=== PATIENT | male | born 1975 | race Caucasian/White ===

== ENCOUNTER 2017-01-09 09:49 | Emergency (ER) | payer OTHER ==
[~2017-01-09 09:49] MED LIST: ALBUTEROL0.09 MG/A2 INH; BENADRYL25 MG PO; BENADRYL50 MG PO; CATAFLAM50 MG PO; CIPROFLOXACIN500 MG PO; CLEOCIN150 MG PO; DAYPRO600 M1 PO; FLEXERIL5 MG PO; HYDROCODONE BIT1 T11 PO; KEFLEX500 MG PO; LIDEX0.05% T; MOTRIN800 MG PO; NKHM; NORCO 325 MG-51 TAB PO; PEPCID20 MG PO; PREDNICOT10 MG PO; PREDNICOT20 MG PO; PREDNISONE10 MG PO; ULTRAM50 MG PO; VIBRAMYCIN100 MG PO; VICODIN 5/500 505 MG PO; VICODIN ES 7501 TAB PO
[2017-01-09] MEDS ORDERED: HYDROCODONE BIT1 T11 PO (11:16)
== END 2017-01-09 10:57 | disposition home or self-care (01) ==
LOC: ED 09:49
DX: S93.401A Sprain of unspecified ligament of right ankle, initial encounter (principal); S90.01XA Contusion of right ankle, initial encounter; R60.9 Edema, unspecified; F17.200 Nicotine dependence, unspecified, uncomplicated; W17.2XXA Fall into hole, initial encounter; Y93.89 Activity, other specified; Y92.89 Other specified places as the place of occurrence of the external cause; Y99.9 Unspecified external cause status

== ENCOUNTER 2019-08-10 19:29 | Emergency (ER) | payer OTHER ==
[~2019-08-10] VITALS: Wt 72.6 kg
== END 2019-08-10 20:23 | disposition left against medical advice (07) ==
LOC: ED 19:29
DX: S01.01XA Laceration without foreign body of scalp, initial encounter (principal); F10.920 Alcohol use, unspecified with intoxication, uncomplicated; R45.6 Violent behavior; F17.200 Nicotine dependence, unspecified, uncomplicated; X58.XXXA Exposure to other specified factors, initial encounter; Y93.89 Activity, other specified; Y92.89 Other specified places as the place of occurrence of the external cause; Y99.8 Other external cause status

== ENCOUNTER 2019-08-15 12:18 | Emergency (ER) | payer OTHER ==
[~2019-08-15] VITALS: Ht 172.7 cm; Wt 81.6 kg
== END 2019-08-15 13:01 | disposition home or self-care (01) ==
LOC: ED 12:18
DX: S01.01XD Laceration without foreign body of scalp, subsequent encounter (principal); R51 Headache; F17.200 Nicotine dependence, unspecified, uncomplicated; Z79.899 Other long term (current) drug therapy; W01.198D Fall on same level from slipping, tripping and stumbling with subsequent striking against other object, subsequent encounter

== ENCOUNTER 2019-08-31 16:10 | Emergency (ER) | payer SELFPAY ==
[~2019-08-31] VITALS: Ht 167.6 cm; Wt 81.6 kg
== END 2019-08-31 17:48 | disposition home or self-care (01) ==
LOC: ED 16:10
DX: S01.01XD Laceration without foreign body of scalp, subsequent encounter (principal); Z79.899 Other long term (current) drug therapy; W01.198D Fall on same level from slipping, tripping and stumbling with subsequent striking against other object, subsequent encounter

== ENCOUNTER 2020-04-18 00:21 | Emergency (ER) | payer SELFPAY ==
[~2020-04-18] VITALS: Ht 175.2 cm; Wt 81.6 kg
[2020-04-18 00:48] LABS: BASO # 0.1 10*3/uL (0.0-0.1); EOS # 0.3 10*3/uL (0.0-0.4); EOS % 3.2 % (1.0-4.0); HEMATOCRIT 47.6 % (42.0-52.0); LYMPH # 4.2 10*3/uL (1.3-4.4); LYMPH % 41.5 % (27.0-41.0); MEAN CELL VOLUME 91.9 fl (80.0-94.0); MEAN CORPUSCULAR HGB 32.2 pg (27.0-31.0); MEAN CORPUSCULAR HGB CONC 35.1 g/dl (33.0-37.0); MEAN PLATELET VOLUME 9.8 fl (9.6-12.3); MONO # 0.5 10*3/uL (0.1-1.0); MONO % 4.6 % (3.0-9.0); NEUT % 49.5 % (47.0-73.0); PLATELET COUNT AUTOMATED 262 10*3/uL (130-400); RED BLOOD COUNT 5.18 10*6/uL (4.50-5.90); RED CELL DISTRI WIDTH 12.5 % (0-14.5); WHITE BLOOD COUNT 10.1 10*3/uL (4.8-10.8)
[2020-04-18 00:59] LABS: ACT PARTIAL THROMBO TIME 28.2 SECONDS (20.0-32.1); INTERNATIONAL NORM RATIO 0.9 (2.0-3.5)
[2020-04-18 01:05] LABS: ALBUMIN 3.7 gm/dl (3.1-4.5); ALKALINE PHOSPHATASE 80 U/L (45-117); BUN 11 mg/dl (7-24); CHLORIDE 100 mmol/L (98-107); CREATININE 1.01 mg/dL (0.70-1.30); POTASSIUM 3.1 mmol/L (3.5-5.1); SGOT/AST 19 IU/L (3-35); SGPT/ALT 24 U/L (12-78); SODIUM 133 mmol/L (136-145); TOTAL PROTEIN 7.1 gm/dL (6.4-8.2)
[2020-04-18 01:06] LABS: TROPONIN I < 0.015 ng/ml (<0.045)
[2020-04-18] MEDS ORDERED: PROVENTIL HFA6.7 GM INH (01:25)
[2020-04-18] MEDS ORDERED: IBU600 M1 PO (01:25)
== END 2020-04-18 01:56 | disposition home or self-care (01) ==
LOC: ED 00:21
PROVIDERS: Emergency Medicine
DX: J44.9 Chronic obstructive pulmonary disease, unspecified (principal); R07.89 Other chest pain; R05 Cough; F17.210 Nicotine dependence, cigarettes, uncomplicated; Z79.899 Other long term (current) drug therapy

== ENCOUNTER 2020-05-04 02:37 | Emergency (ER) | payer SELFPAY ==
[~2020-05-04] VITALS: Ht 175.2 cm; Wt 81.6 kg
[~2020-05-04 02:37] MED LIST changes: +IBU600 M1 PO; +PROVENTIL HFA6.7 GM INH
== END 2020-05-04 05:46 | disposition left against medical advice (07) ==
LOC: ED 02:37
DX: S02.2XXA Fracture of nasal bones, initial encounter for closed fracture (principal); S01.01XA Laceration without foreign body of scalp, initial encounter; F17.200 Nicotine dependence, unspecified, uncomplicated; J44.9 Chronic obstructive pulmonary disease, unspecified; Z79.899 Other long term (current) drug therapy; Y08.89XA Assault by other specified means, initial encounter; Y93.89 Activity, other specified; Y92.89 Other specified places as the place of occurrence of the external cause; Y99.8 Other external cause status

== ENCOUNTER 2021-04-16 17:40 | Emergency (ER) | payer SELFPAY ==
[~2021-04-16] VITALS: Wt 81.6 kg
[2021-04-16] MEDS ORDERED: PREDNISONE10 MG PO (18:04)
== END 2021-04-16 18:14 | disposition home or self-care (01) ==
LOC: ED 17:40
DX: L23.9 Allergic contact dermatitis, unspecified cause (principal); Z79.899 Other long term (current) drug therapy

== ENCOUNTER 2021-05-10 11:21 | Emergency (ER) | payer SELFPAY ==
[~2021-05-10] VITALS: Wt 81.6 kg
[2021-05-10] MEDS ORDERED: PREDNISONE10 MG PO (11:45)
== END 2021-05-10 12:04 | disposition home or self-care (01) ==
LOC: ED 11:21
DX: L23.7 Allergic contact dermatitis due to plants, except food (principal)

== ENCOUNTER 2021-10-08 21:12 | Emergency (ER) | payer SELFPAY ==
[~2021-10-08] VITALS: Ht 170.1 cm; Wt 81.6 kg
[2021-10-08 22:29] LABS: BASO # 0.1 10*3/uL (0.0-0.1); BASO % 0.9 % (0.0-1.0); EOS # 0.2 10*3/uL (0.0-0.4); EOS % 1.6 % (1.0-4.0); LYMPH # 2.4 10*3/uL (1.3-4.4); LYMPH % 26.5 % (27.0-41.0); MEAN CORPUSCULAR HGB 31.6 pg (27.0-31.0); MEAN CORPUSCULAR HGB CONC 34.3 g/dl (33.0-37.0); MEAN PLATELET VOLUME 9.4 fl (9.6-12.3); MONO # 0.7 10*3/uL (0.1-1.0); MONO % 7.5 % (3.0-9.0); NEUT # 5.8 10*3/uL (2.3-7.9); NEUT % 63.4 % (47.0-73.0); PLATELET COUNT AUTOMATED 286 10*3/uL (130-400); RED BLOOD COUNT 5.76 10*6/uL (4.50-5.90); RED CELL DISTRI WIDTH 12.7 % (0-14.5); WHITE BLOOD COUNT 9.1 10*3/uL (4.8-10.8)
[2021-10-08 22:47] LABS: ALBUMIN 3.6 gm/dl (3.1-4.5); ALKALINE PHOSPHATASE 94 U/L (45-117); BUN 17 mg/dl (7-24); CHLORIDE 106 mmol/L (98-107); CREATININE 0.95 mg/dL (0.70-1.30); LIPASE 116 U/L (73-393); SGOT/AST 19 IU/L (3-35); SGPT/ALT 39 U/L (12-78); SODIUM 137 mmol/L (136-145); TOTAL PROTEIN 7.6 gm/dL (6.4-8.2)
[2021-10-09 00:37] LABS: BILIRUBIN Negative (Negative); BLOOD Negative (Negative); CLARITY Clear (Clear); COLOR Yellow (Yellow); GLUCOSE Negative (Negative); KETONE Trace (Negative); LEUKO ESTERASE Negative (Negative); NITRITE Negative (Negative); SPECIFIC GRAVITY >= 1.030 (1.001-1.030); UROBILINOGEN 0.2 E.U./dl (0.0-1.0)
[2021-10-09 01:02] LABS: RBC 0-2 rbc/hpf (0-2); WBC 0-2 wbc/hpf (0-5)
[2021-10-09] MEDS ORDERED: MIRALAX POWDER17 G1 PO (11:16)
== END 2021-10-09 00:53 | disposition home or self-care (01) ==
LOC: ED 21:12
PROVIDERS: Physician Assistant
DX: K59.00 Constipation, unspecified (principal); R10.33 Periumbilical pain; F17.200 Nicotine dependence, unspecified, uncomplicated

== ENCOUNTER 2021-10-09 08:35 | Emergency (ER) | payer SELFPAY ==
[~2021-10-09] VITALS: Wt 81.6 kg
[2021-10-09 09:32] LABS: BASO # 0.1 10*3/uL (0.0-0.1); BASO % 0.7 % (0.0-1.0); EOS # 0.1 10*3/uL (0.0-0.4); EOS % 0.9 % (1.0-4.0); HEMATOCRIT 53.2 % (42.0-52.0); LYMPH % 20.2 % (27.0-41.0); MEAN CELL VOLUME 91.7 fl (80.0-94.0); MEAN CORPUSCULAR HGB 31.9 pg (27.0-31.0); MEAN CORPUSCULAR HGB CONC 34.8 g/dl (33.0-37.0); MEAN PLATELET VOLUME 9.4 fl (9.6-12.3); MONO # 0.7 10*3/uL (0.1-1.0); MONO % 7.3 % (3.0-9.0); NEUT # 6.8 10*3/uL (2.3-7.9); NEUT % 70.7 % (47.0-73.0); PLATELET COUNT AUTOMATED 286 10*3/uL (130-400); RED CELL DISTRI WIDTH 12.8 % (0-14.5); WHITE BLOOD COUNT 9.6 10*3/uL (4.8-10.8)
[2021-10-09 09:49] LABS: ALBUMIN 3.9 gm/dl (3.1-4.5); ALKALINE PHOSPHATASE 105 U/L (45-117); BUN 19 mg/dl (7-24); CHLORIDE 104 mmol/L (98-107); CREATININE 1.01 mg/dL (0.70-1.30); LIPASE 129 U/L (73-393); POTASSIUM 4.5 mmol/L (3.5-5.1); SGOT/AST 21 IU/L (3-35); SGPT/ALT 37 U/L (12-78); SODIUM 137 mmol/L (136-145); TOTAL PROTEIN 8.1 gm/dL (6.4-8.2)
[2021-10-09 09:55] LABS: URINE AMPHETAMINES > 1000 (1000ng/ml); URINE BARBITURATES < 200 (200ng/ml); URINE BENZODIAZEPINES < 200 (200ng/ml); URINE CANNABINOIDS (THC) > 50 (50ng/ml); URINE COCAINE < 300 (300ng/ml); URINE METHADONE < 300 (300ng/ml); URINE OPIATES < 300 (300ng/ml)
[2021-10-09 09:56] LABS: URINE PHENCYCLIDINE < 25 (25ng/ml)
[2021-10-09] MEDS ORDERED: MIRALAX POWDER17 G1 PO (11:16)
== END 2021-10-09 11:22 | disposition home or self-care (01) ==
LOC: ED 08:35
PROVIDERS: Emergency Medicine
DX: K59.00 Constipation, unspecified (principal); F15.10 Other stimulant abuse, uncomplicated; R10.84 Generalized abdominal pain; F17.200 Nicotine dependence, unspecified, uncomplicated; J44.9 Chronic obstructive pulmonary disease, unspecified

== ENCOUNTER 2022-05-08 17:40 | Emergency (ER) | payer SELFPAY ==
[~2022-05-08] VITALS: Ht 175.2 cm; Wt 857.3 kg
[~2022-05-08 17:40] MED LIST changes: +MIRALAX POWDER17 G1 PO
[2022-05-08] MEDS ORDERED: PENICILLIN VK500 MG PO (18:15)
[2022-05-08] MEDS ORDERED: PREDNISONE20 M1 PO (18:15)
== END 2022-05-08 19:59 | disposition home or self-care (01) ==
LOC: ED 17:40
DX: L23.7 Allergic contact dermatitis due to plants, except food (principal); K02.9 Dental caries, unspecified

== ENCOUNTER 2022-05-25 09:24 | Emergency (ER) | payer MEDICAID ==
[~2022-05-25] VITALS: Wt 81.6 kg
[~2022-05-25 09:24] MED LIST changes: +PENICILLIN VK500 MG PO; +PREDNISONE20 M1 PO
[2022-05-25] MEDS ORDERED: PREDNISONE20 M1 PO (09:54)
== END 2022-05-25 10:04 | disposition home or self-care (01) ==
LOC: ED 09:24
DX: L23.7 Allergic contact dermatitis due to plants, except food (principal)

== ENCOUNTER 2022-06-14 20:16 | Emergency (ER) | payer MEDICAID ==
[~2022-06-14] VITALS: Ht 172.7 cm; Wt 81.6 kg
[2022-06-14] MEDS ORDERED: PREDNISONE10 MG PO (22:11)
== END 2022-06-14 22:16 | disposition home or self-care (01) ==
LOC: ED 20:16
DX: L23.9 Allergic contact dermatitis, unspecified cause (principal); F17.200 Nicotine dependence, unspecified, uncomplicated

== ENCOUNTER 2022-07-03 14:26 | Emergency (ER) | payer MEDICAID ==
[~2022-07-03] VITALS: Ht 172.7 cm; Wt 81.6 kg
[2022-07-03] MEDS ORDERED: SEPTDS PO (15:08)
[2022-07-03] MEDS ORDERED: HIBICLENS118 ML IRRIG (15:12)
== END 2022-07-03 15:41 | disposition home or self-care (01) ==
LOC: ED 14:26
DX: L03.012 Cellulitis of left finger (principal)

== ENCOUNTER 2022-10-12 10:20 | Emergency (ER) | payer MEDICAID ==
[~2022-10-12] VITALS: Ht 172.7 cm; Wt 88.0 kg
[~2022-10-12 10:20] MED LIST changes: +HIBICLENS118 ML IRRIG; +SEPTDS PO
== END 2022-10-12 12:40 | disposition home or self-care (01) ==
LOC: ED 10:20
DX: U07.1 COVID-19 (principal); F10.90 Alcohol use, unspecified, uncomplicated

== ENCOUNTER 2023-02-12 10:11 | Emergency (ER) | payer MEDICAID ==
[~2023-02-12] VITALS: Ht 170.1 cm; Wt 79.4 kg
[2023-02-12 10:51] LABS: BASO # 0.1 10*3/uL (0.0-0.1); BASO % 0.7 % (0.0-1.0); EOS % 0.3 % (1.0-4.0); HEMATOCRIT 53.9 % (42.0-52.0); LYMPH # 1.6 10*3/uL (1.3-4.4); LYMPH % 16.3 % (27.0-41.0); MEAN CELL VOLUME 92.3 fl (80.0-94.0); MEAN CORPUSCULAR HGB 32.2 pg (27.0-31.0); MEAN CORPUSCULAR HGB CONC 34.9 g/dl (33.0-37.0); MONO # 0.5 10*3/uL (0.1-1.0); MONO % 5.1 % (3.0-9.0); NEUT # 7.3 10*3/uL (2.3-7.9); NEUT % 77.4 % (47.0-73.0); PLATELET COUNT AUTOMATED 284 10*3/uL (130-400); RED BLOOD COUNT 5.84 10*6/uL (4.50-5.90); RED CELL DISTRI WIDTH 12.4 % (0-14.5); WHITE BLOOD COUNT 9.5 10*3/uL (4.8-10.8)
[2023-02-12 11:15] LABS: ALKALINE PHOSPHATASE 84 U/L (46-116); BUN 10 mg/dl (9-23); CHLORIDE 103 mmol/L (98-107); POTASSIUM 3.9 mmol/L (3.4-5.1); SGPT/ALT 12 U/L (10-49); TOTAL PROTEIN 7.6 gm/dL (6.0-8.0)
== END 2023-02-12 13:02 | disposition left against medical advice (07) ==
LOC: ED 10:11
PROVIDERS: Student in an Organized Health Care Education/Training Program
DX: R10.9 Unspecified abdominal pain (principal)

== ENCOUNTER 2023-02-15 12:39 | Emergency (ER) | payer OTHER ==
[~2023-02-15] VITALS: Ht 170.1 cm; Wt 81.6 kg
[2023-02-15 14:20] LABS: BASO # 0.1 10*3/uL (0.0-0.1); BASO % 0.8 % (0.0-1.0); EOS # 0.1 10*3/uL (0.0-0.4); HEMATOCRIT 56.5 % (42.0-52.0); LYMPH # 2.4 10*3/uL (1.3-4.4); LYMPH % 22.8 % (27.0-41.0); MEAN CELL VOLUME 92.8 fl (80.0-94.0); MEAN CORPUSCULAR HGB CONC 34.5 g/dl (33.0-37.0); MEAN PLATELET VOLUME 10.3 fl (9.6-12.3); MONO # 0.8 10*3/uL (0.1-1.0); MONO % 7.1 % (3.0-9.0); NEUT # 7.3 10*3/uL (2.3-7.9); NEUT % 67.8 % (47.0-73.0); PLATELET COUNT AUTOMATED 297 10*3/uL (130-400); RED BLOOD COUNT 6.09 10*6/uL (4.50-5.90); RED CELL DISTRI WIDTH 12.4 % (0-14.5); WHITE BLOOD COUNT 10.7 10*3/uL (4.8-10.8)
[2023-02-15 14:26] LABS: ALKALINE PHOSPHATASE 87 U/L (46-116); BUN 14 mg/dl (9-23); CHLORIDE 103 mmol/L (98-107); LIPASE 37 U/L (12-53); POTASSIUM 4.1 mmol/L (3.4-5.1); SGPT/ALT 16 U/L (10-49); TOTAL PROTEIN 7.9 gm/dL (6.0-8.0)
[2023-02-15] MEDS ORDERED: DICYCLOMINE HYD20 MG PO (14:42)
[2023-02-15] MEDS ORDERED: OMEPRAZOLE20 M3 PO (14:42)
== END 2023-02-15 14:48 | disposition home or self-care (01) ==
LOC: ED 12:39
PROVIDERS: Student in an Organized Health Care Education/Training Program
DX: R10.84 Generalized abdominal pain (principal); F17.200 Nicotine dependence, unspecified, uncomplicated

== ENCOUNTER → 2023-03-04 | Outpatient (CLI) | payer OTHER ==
[~2023-03-04] MED LIST changes: +DICYCLOMINE HYD20 MG PO; +OMEPRAZOLE20 M3 PO
[2023-03-04 11:46] LABS: BASO # 0.1 10*3/uL (0.0-0.1); EOS # 0.4 10*3/uL (0.0-0.4); HEMATOCRIT 53.6 % (42.0-52.0); LYMPH # 2.7 10*3/uL (1.3-4.4); LYMPH % 30.1 % (27.0-41.0); MEAN CELL VOLUME 95.2 fl (80.0-94.0); MEAN CORPUSCULAR HGB 32.3 pg (27.0-31.0); MEAN PLATELET VOLUME 9.7 fl (9.6-12.3); MONO # 0.5 10*3/uL (0.1-1.0); MONO % 5.6 % (3.0-9.0); NEUT # 5.3 10*3/uL (2.3-7.9); PLATELET COUNT AUTOMATED 290 10*3/uL (130-400); RED BLOOD COUNT 5.63 10*6/uL (4.50-5.90); RED CELL DISTRI WIDTH 12.9 % (0-14.5); WHITE BLOOD COUNT 8.9 10*3/uL (4.8-10.8)
[2023-03-04 12:40] LABS: ALKALINE PHOSPHATASE 81 U/L (46-116); BUN 13 mg/dl (9-23); CHLORIDE 107 mmol/L (98-107); CHOLESTEROL 212 mg/dL (<200); FREE T4 1.04 ng/dl (0.89-1.76); LDL CHOLESTEROL 132 mg/dL (9-159); POTASSIUM 3.8 mmol/L (3.4-5.1); SGPT/ALT 30 U/L (10-49); THYROID STIM HORMONE (HS) 0.807 uIU/ml (0.550-4.780); TOTAL PROTEIN 7.2 gm/dL (6.0-8.0); TRIGLYCERIDES 129 mg/dl (<150)
== END | disposition home or self-care (01) ==
LOC: LAB 11:27
PROVIDERS: ATTEND Student in an Organized Health Care Education/Training Program
DX: Z12.5 Encounter for screening for malignant neoplasm of prostate (principal); R53.83 Other fatigue

== ENCOUNTER 2023-06-07 09:51 | Emergency (ER) | payer OTHER ==
[~2023-06-07] VITALS: Wt 83.9 kg
[2023-06-07] MEDS ORDERED: PREDNISONE50 MG PO (10:23)
== END 2023-06-07 10:26 | disposition home or self-care (01) ==
LOC: ED 09:51
DX: L25.9 Unspecified contact dermatitis, unspecified cause (principal); Z79.899 Other long term (current) drug therapy

== ENCOUNTER 2023-06-11 11:40 | Emergency (ER) | payer OTHER ==
[~2023-06-11] VITALS: Ht 172.7 cm; Wt 83.9 kg
[~2023-06-11 11:40] MED LIST changes: +PREDNISONE50 MG PO
[2023-06-11] MEDS ORDERED: TRIAMCINOLONE430 GM TD (12:29)
[2023-06-11] MEDS ORDERED: PREDNISONE20 M1 PO (12:29)
== END 2023-06-11 13:24 | disposition home or self-care (01) ==
LOC: ED 11:40
DX: L25.9 Unspecified contact dermatitis, unspecified cause (principal)

== ENCOUNTER 2023-11-22 12:26 | Emergency (ER) | payer OTHER ==
[~2023-11-22] VITALS: Ht 170.1 cm; Wt 81.6 kg
[~2023-11-22 12:26] MED LIST changes: +TRIAMCINOLONE430 GM TD
[2023-11-22] MEDS ORDERED: SODIUM CHLORIDE 0.9% 1,000 ML IV ONE (12:45)
[2023-11-22] MEDS ORDERED: Ketorolac Tromethamine 30 MG/ML VIAL IV ONE (12:50)
[2023-11-22] MEDS ORDERED: Ondansetron Hydrochloride 4 MG/2 ML VIAL IV ONE (12:50)
[2023-11-22] MEDS ORDERED: ACETAMINOPHEN 325 MG TAB PO ONE (12:50)
[2023-11-22 13:24] LABS: BASO # 0.1 10*3/uL (0.0-0.1); BASO % 1.2 % (0.0-1.0); EOS # 0.2 10*3/uL (0.0-0.4); EOS % 2.1 % (1.0-4.0); HEMATOCRIT 54.5 % (42.0-52.0); LYMPH # 2.5 10*3/uL (1.3-4.4); LYMPH % 27.5 % (27.0-41.0); MEAN CELL VOLUME 92.5 fl (80.0-94.0); MEAN CORPUSCULAR HGB 31.2 pg (27.0-31.0); MEAN CORPUSCULAR HGB CONC 33.8 g/dl (33.0-37.0); MEAN PLATELET VOLUME 9.5 fl (9.6-12.3); MONO # 0.9 10*3/uL (0.1-1.0); MONO % 9.4 % (3.0-9.0); NEUT # 5.5 10*3/uL (2.3-7.9); NEUT % 59.6 % (47.0-73.0); PLATELET COUNT AUTOMATED 320 10*3/uL (130-400); RED BLOOD COUNT 5.89 10*6/uL (4.50-5.90); RED CELL DISTRI WIDTH 12.3 % (0-14.5); WHITE BLOOD COUNT 9.2 10*3/uL (4.8-10.8)
[2023-11-22 13:45] LABS: ALKALINE PHOSPHATASE 79 U/L (46-116); BUN 14 mg/dl (9-23); CHLORIDE 103 mmol/L (98-107); LIPASE 33 U/L (12-53); POTASSIUM 4.4 mmol/L (3.4-5.1); SGPT/ALT 15 U/L (5-49); TOTAL PROTEIN 7.1 gm/dL (6.0-8.0)
[2023-11-22] MEDS ORDERED: ONDANSETRON4 MG SL (15:41)
== END 2023-11-22 16:13 | disposition home or self-care (01) ==
LOC: ED 12:26
PROVIDERS: Emergency Medicine
DX: B34.9 Viral infection, unspecified (principal); Z20.822 Contact with and (suspected) exposure to COVID-19; R06.02 Shortness of breath

== ENCOUNTER 2024-06-12 09:53 | Inpatient (IN) | payer OTHER ==
[~2024-06-12] VITALS: Ht 170.1 cm; Wt 81.6 kg
[~2024-06-12 09:53] MED LIST changes: +ONDANSETRON4 MG SL
[2024-06-12 10:10] VITALS: BP 109/79
[2024-06-12 11:08] LABS: BASO # 0.1 10*3/uL (0.0-0.1); BASO % 1.4 % (0.0-1.0); EOS # 0.4 10*3/uL (0.0-0.4); HEMATOCRIT 48.3 % (42.0-52.0); LYMPH % 23.6 % (27.0-41.0); MEAN CORPUSCULAR HGB CONC 33.3 g/dl (33.0-37.0); MEAN PLATELET VOLUME 9.9 fl (9.6-12.3); MONO # 0.7 10*3/uL (0.1-1.0); MONO % 7.7 % (3.0-9.0); NEUT # 5.2 10*3/uL (2.3-7.9); NEUT % 62.2 % (47.0-73.0); PLATELET COUNT AUTOMATED 272 10*3/uL (130-400); RED BLOOD COUNT 5.03 10*6/uL (4.50-5.90); RED CELL DISTRI WIDTH 12.7 % (0-14.5); WHITE BLOOD COUNT 8.4 10*3/uL (4.8-10.8)
[2024-06-12 11:23] LABS: ALKALINE PHOSPHATASE 85 U/L (46-116); BUN 18 mg/dl (9-23); CHLORIDE 110 mmol/L (98-107); POTASSIUM 3.8 mmol/L (3.4-5.1); SGPT/ALT 22 U/L (5-49)
[2024-06-12] MEDS ORDERED: Piperacillin Sodium/Tazobact 50 ML IV ONE (11:50)
[2024-06-12] MEDS ORDERED: Vancomycin Hydrochloride 250 ML IV ONE (11:50)
[2024-06-12] MEDS ORDERED: Tdap Vaccine 0.5 ML SYR (Adult Vaccine) IM ONE (12:45)
[2024-06-12] MEDS ORDERED: BISACODYL 10 MG SUPP R PRN (13:50)
[2024-06-12] MEDS ORDERED: ACETAMINOPHEN 650 MG SUPP R PRN (13:50)
[2024-06-12] MEDS ORDERED: BISACODYL 5 MG TAB PO PRN (13:50)
[2024-06-12] MEDS ORDERED: ACETAMINOPHEN 325 MG TAB PO PRN (13:50)
[2024-06-12] MEDS ORDERED: Magnesium Hydroxide 30 ML UDC PO PRN (13:50)
[2024-06-12] MEDS ORDERED: Ondansetron Hydrochloride 4 MG/2 ML VIAL IV PRN (13:50)
[2024-06-12 16:00] VITALS: BP 112/78
[2024-06-12] MEDS ORDERED: Doxycycline Hyclate 100 MG in SODIUM CHLORIDE 0.9% 250 ML IV SCH (17:00)
[2024-06-13 00:30] VITALS: BP 130/76
[2024-06-13] MEDS ORDERED: NICOTINE POLACRILEX 4 MG (TUBE OF 27 LOZENGES) PO PRN (00:50)
[2024-06-13] MEDS ORDERED: Nicotine 14 MG PATCH T ONE (01:10)
[2024-06-13] MEDS ORDERED: TERBINAFINE250 MG PO (06:38)
[2024-06-13] MEDS ORDERED: VIBRA-TAB100 MG PO (06:38)
[2024-06-13 06:43] LABS: BASO # 0.1 10*3/uL (0.0-0.1); BASO % 1.5 % (0.0-1.0); EOS # 0.5 10*3/uL (0.0-0.4); EOS % 5.7 % (1.0-4.0); HEMATOCRIT 49.3 % (42.0-52.0); LYMPH # 2.8 10*3/uL (1.3-4.4); LYMPH % 30.3 % (27.0-41.0); MEAN CELL VOLUME 96.5 fl (80.0-94.0); MEAN CORPUSCULAR HGB 32.1 pg (27.0-31.0); MEAN CORPUSCULAR HGB CONC 33.3 g/dl (33.0-37.0); MEAN PLATELET VOLUME 9.9 fl (9.6-12.3); MONO # 0.7 10*3/uL (0.1-1.0); MONO % 7.5 % (3.0-9.0); NEUT % 54.8 % (47.0-73.0); PLATELET COUNT AUTOMATED 268 10*3/uL (130-400); RED BLOOD COUNT 5.11 10*6/uL (4.50-5.90); RED CELL DISTRI WIDTH 12.7 % (0-14.5); WHITE BLOOD COUNT 9.1 10*3/uL (4.8-10.8)
[2024-06-13 07:19] LABS: BUN 13 mg/dl (9-23); CHLORIDE 111 mmol/L (98-107); CHOLESTEROL 120 mg/dL (<200); FREE T4 1.31 ng/dl (0.89-1.76); LDL CHOLESTEROL 59 mg/dL (9-159); POTASSIUM 3.7 mmol/L (3.4-5.1); TRIGLYCERIDES 82 mg/dl (<150)
[2024-06-13 07:55] LABS: VITAMIN D, 25-HYDROXY 43.8 ng/mL (30-100)
[2024-06-13] MEDS ORDERED: Nicotine 14 MG PATCH T SCH (10:00)
[2024-06-13] MEDS ORDERED: Enoxaparin Sodium 40 MG/0.4 ML SYR SC SCH (10:00)
[2024-06-13] MEDS ORDERED: [UNRECOGNIZED DRUG - OTHER] PO SCH (10:00)
[2024-06-13] MEDS ORDERED: Nicotine 7 MG PATCH T SCH (10:00)
== END 2024-06-13 09:40 | disposition home or self-care (01) | DRG 383 ==
LOC: ED 09:53 → EDHOLD 12:49
PROVIDERS: Internal Medicine; ADMIT Internal Medicine; ATTEND Internal Medicine
DX: L03.115 Cellulitis of right lower limb (principal); L03.116 Cellulitis of left lower limb; S61.212A Laceration without foreign body of right middle finger without damage to nail, initial encounter; J44.9 Chronic obstructive pulmonary disease, unspecified; F17.210 Nicotine dependence, cigarettes, uncomplicated; B35.3 Tinea pedis; E87.8 Other disorders of electrolyte and fluid balance, not elsewhere classified; Z79.899 Other long term (current) drug therapy; Z71.6 Tobacco abuse counseling; Z79.01 Long term (current) use of anticoagulants; Z79.2 Long term (current) use of antibiotics; X58.XXXA Exposure to other specified factors, initial encounter; Y93.89 Activity, other specified; Y92.89 Other specified places as the place of occurrence of the external cause; Y99.8 Other external cause status

== ENCOUNTER 2024-06-28 12:54 | Emergency (ER) | payer OTHER ==
[~2024-06-28] VITALS: Ht 170.1 cm; Wt 81.6 kg
[~2024-06-28 12:54] MED LIST changes: +TERBINAFINE250 MG PO; +VIBRA-TAB100 MG PO
[2024-06-28] MEDS ORDERED: Doxycycline Hyclate 100 MG CAP PO ONE (13:20)
[2024-06-28] MEDS ORDERED: methylPREDNISolone acetate 80 MG/ML VIAL IM ONE (13:20)
[2024-06-28] MEDS ORDERED: KENALOG 0.1%80 GM T (13:36)
[2024-06-28] MEDS ORDERED: VIBRAMYCIN100 MG PO (13:36)
[2024-06-28] MEDS ORDERED: PREDNISONE20 M1 PO (13:36)
== END 2024-06-28 13:34 | disposition home or self-care (01) ==
LOC: ED 12:54
DX: L23.7 Allergic contact dermatitis due to plants, except food (principal); L03.221 Cellulitis of neck; F12.10 Cannabis abuse, uncomplicated; F17.210 Nicotine dependence, cigarettes, uncomplicated

== ENCOUNTER 2024-09-08 11:26 | Emergency (ER) | payer BC ==
[~2024-09-08] VITALS: Ht 170.1 cm; Wt 81.6 kg
[~2024-09-08 11:26] MED LIST changes: +KENALOG 0.1%80 GM T
[2024-09-08] MEDS ORDERED: SODIUM CHLORIDE 0.9% 1,000 ML IV ONE (11:40)
[2024-09-08] MEDS ORDERED: diphenhydrAMINE hydrochloride 50 MG/ML VIAL IV ONE (11:40)
[2024-09-08] MEDS ORDERED: Prochlorperazine Edisylate 10 MG/2 ML VIAL IV ONE (11:40)
[2024-09-08 12:29] LABS: BASO # 0.1 10*3/uL (0.0-0.1); BASO % 0.6 % (0.0-1.0); EOS % 0.2 % (1.0-4.0); HEMATOCRIT 52.6 % (42.0-52.0); MEAN CELL VOLUME 92.9 fl (80.0-94.0); MEAN CORPUSCULAR HGB 31.8 pg (27.0-31.0); MEAN CORPUSCULAR HGB CONC 34.2 g/dl (33.0-37.0); MEAN PLATELET VOLUME 9.7 fl (9.6-12.3); MONO # 0.8 10*3/uL (0.1-1.0); MONO % 8.6 % (3.0-9.0); NEUT # 6.8 10*3/uL (2.3-7.9); NEUT % 72.5 % (47.0-73.0); PLATELET COUNT AUTOMATED 316 10*3/uL (130-400); RED BLOOD COUNT 5.66 10*6/uL (4.50-5.90); RED CELL DISTRI WIDTH 12.6 % (0-14.5); WHITE BLOOD COUNT 9.4 10*3/uL (4.8-10.8)
[2024-09-08 12:48] LABS: BUN 14 mg/dl (9-23); CHLORIDE 103 mmol/L (98-107); POTASSIUM 3.6 mmol/L (3.4-5.1)
[2024-09-08 12:50] LABS: ETHYL ALCOHOL < 3.0 mg/dl (<3)
[2024-09-08] MEDS ORDERED: Ondansetron4 MG PO (13:19)
[2024-09-08] MEDS ORDERED: AVPAK AZITHROM250 M1 PO (13:19)
== END 2024-09-08 13:30 | disposition home or self-care (01) ==
LOC: ED 11:26
PROVIDERS: Emergency Medicine
DX: J44.89 Other specified chronic obstructive pulmonary disease (principal); Z20.822 Contact with and (suspected) exposure to COVID-19; R11.2 Nausea with vomiting, unspecified; M79.10 Myalgia, unspecified site; F17.210 Nicotine dependence, cigarettes, uncomplicated

== ENCOUNTER 2025-07-20 12:48 | Emergency (ER) | payer BC ==
[~2025-07-20] VITALS: Ht 172.7 cm; Wt 81.6 kg
[~2025-07-20 12:48] MED LIST changes: +AVPAK AZITHROM250 M1 PO; +Ondansetron4 MG PO
[2025-07-20] MEDS ORDERED: PREDNISONE20 M1 PO (13:18)
== END 2025-07-20 13:33 | disposition home or self-care (01) ==
LOC: ED 12:48
DX: L25.9 Unspecified contact dermatitis, unspecified cause (principal); F17.210 Nicotine dependence, cigarettes, uncomplicated

== ENCOUNTER 2025-07-26 09:54 | Emergency (ER) | payer BC ==
[~2025-07-26] VITALS: Ht 175.2 cm; Wt 81.6 kg
[2025-07-26] MEDS ORDERED: Ondansetron Hydrochloride 4 MG TAB PO ONE (10:20)
[2025-07-26] MEDS ORDERED: IOHEXOL 300 MG/ML 100 ML VIAL IV ONE (10:25)
[2025-07-26 10:33] LABS: BASO # 0.1 10*3/uL (0.0-0.1); BASO % 0.7 % (0.0-1.0); EOS # 0.1 10*3/uL (0.0-0.4); EOS % 0.5 % (1.0-4.0); MEAN CELL VOLUME 94.3 fl (80.0-94.0); MEAN CORPUSCULAR HGB 32.0 pg (27.0-31.0); MEAN PLATELET VOLUME 9.4 fl (9.6-12.3); MONO # 0.8 10*3/uL (0.1-1.0); MONO % 7.9 % (3.0-9.0); NEUT # 7.3 10*3/uL (2.3-7.9); NEUT % 70.2 % (47.0-73.0); NUCLEATED RED BLOOD CELL 0.0 % (0.0-0.0); NUCLEATED RED BLOOD CELL 0.0 10*3/uL (0.0-0.0); PLATELET COUNT AUTOMATED 296 10*3/uL (130-400); RED CELL DISTRI WIDTH 12.6 % (0-14.5)
[2025-07-26] MEDS ORDERED: IOHEXOL 300 MG/ML 100 ML VIAL ONE (10:47)
[2025-07-26 10:57] LABS: BUN 19 mg/dl (9-23); SGPT/ALT 25 U/L (5-49)
[2025-07-26] MEDS ORDERED: Ondansetron4 MG PO (12:19)
== END 2025-07-26 12:35 | disposition home or self-care (01) ==
LOC: ED 09:54
PROVIDERS: Student in an Organized Health Care Education/Training Program
DX: R11.2 Nausea with vomiting, unspecified (principal); R10.9 Unspecified abdominal pain

== ENCOUNTER 2025-07-29 16:56 | Emergency (ER) | payer BC ==
[~2025-07-29] VITALS: Ht 175.2 cm; Wt 81.6 kg
[2025-07-29] MEDS ORDERED: SODIUM CHLORIDE 0.9% 1,000 ML IV ONE (17:25)
[2025-07-29] MEDS ORDERED: Ondansetron Hydrochloride 4 MG/2 ML VIAL IV ONE (17:25)
[2025-07-29] MEDS ORDERED: Albuterol Sulf/Ipratropium 3 ML VIAL NEB ONE (17:30)
[2025-07-29 17:38] LABS: BASO # 0.1 10*3/uL (0.0-0.1); BASO % 0.4 % (0.0-1.0); EOS # 0.1 10*3/uL (0.0-0.4); EOS % 0.8 % (1.0-4.0); MEAN CELL VOLUME 93.3 fl (80.0-94.0); MEAN CORPUSCULAR HGB 32.4 pg (27.0-31.0); MEAN PLATELET VOLUME 9.5 fl (9.6-12.3); MONO # 1.0 10*3/uL (0.1-1.0); MONO % 8.8 % (3.0-9.0); NEUT # 8.2 10*3/uL (2.3-7.9); NEUT % 71.4 % (47.0-73.0); NUCLEATED RED BLOOD CELL 0.0 % (0.0-0.0); NUCLEATED RED BLOOD CELL 0.0 10*3/uL (0.0-0.0); PLATELET COUNT AUTOMATED 317 10*3/uL (130-400); RED CELL DISTRI WIDTH 12.0 % (0-14.5)
[2025-07-29 18:07] LABS: BUN 23 mg/dl (9-23); SGPT/ALT 20 U/L (5-49)
[2025-07-29] MEDS ORDERED: IOHEXOL 300 MG/ML 100 ML VIAL IV ONE (18:50)
[2025-07-29] MEDS ORDERED: IOHEXOL 300 MG/ML 100 ML VIAL ONE (19:12)
[2025-07-29 20:02] LABS: BILIRUBIN Negative (Negative); BLOOD Negative (Negative); CLARITY Clear (Clear); COLOR Yellow (Yellow); KETONE Trace (Negative); LEUKO ESTERASE Negative (Negative); NITRITE Negative (Negative); PH 5.0 (4.5-8.0); SPECIFIC GRAVITY >= 1.030 (1.001-1.030); UROBILINOGEN 1.0 E.U./dl (0.0-1.0)
[2025-07-29 20:16] LABS: MUCOUS 2+
[2025-07-29] MEDS ORDERED: PREDNISONE20 M1 PO (20:43)
[2025-07-29] MEDS ORDERED: AVPAK AZITHROM250 M1 PO (20:43)
[2025-07-29] MEDS ORDERED: Phenergan25 MG PO (20:43)
[2025-07-29] MEDS ORDERED: AZITHROMYCIN 250 MG TAB PO ONE (20:45)
== END 2025-07-29 21:04 | disposition home or self-care (01) ==
LOC: ED 16:56
PROVIDERS: Nurse Practitioner Family
DX: J44.89 Other specified chronic obstructive pulmonary disease (principal); K52.9 Noninfective gastroenteritis and colitis, unspecified; R10.10 Upper abdominal pain, unspecified; F17.210 Nicotine dependence, cigarettes, uncomplicated